=== PATIENT | male | born 1970 | race Two or more races ===

== ENCOUNTER 2019-09-29 21:54 | Inpatient (IN) | payer OTHER ==
[2019-09-29 22:42] VITALS: BMI 20.9
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
[2019-09-30] MEDS ORDERED: BISMUTH SUBSALICYLATE 524 MG/30 ML UD PO PRN (00:50)
[2019-09-30] MEDS ORDERED: BACLOFEN 10 MG TABLET (FP) PO PRN (00:50)
[2019-09-30] MEDS ORDERED: METHOCARBAMOL 500 MG TABLET PO PRN (00:50)
[2019-09-30] MEDS ORDERED: ACETAMINOPHEN 325 MG TABLET (FP) PO PRN ×2 (00:50)
[2019-09-30] MEDS ORDERED: P-EPHED 60MG/TRIPROLIDI 2.5MG TABLET PO PRN (00:50)
[2019-09-30] MEDS ORDERED: guaiFENesin 200 MG/10 ML 10 ML UNIT-DOSE CUPS PO PRN (00:50)
[2019-09-30] MEDS ORDERED: DICYCLOMINE HCL 10 MG CAPSULE PO PRN (00:50)
[2019-09-30] MEDS ORDERED: MAG HYDROX/AL HYDROX/SIMETH 30 ML UNIT-DOSE CUP PO PRN (00:50)
[2019-09-30] MEDS ORDERED: LORazepam 1 MG TABLET PO PRN (00:50)
[2019-09-30] MEDS ORDERED: IBUPROFEN 400 MG TABLET (FP) PO PRN (00:50)
[2019-09-30] MEDS ORDERED: ONDANSETRON *ODT* 4 MG TABLET SL PRN (00:50)
[2019-09-30] MEDS ORDERED: hydrOXYzine PAMOATE 25 MG CAPSULE (FP) PO PRN (00:50)
[2019-09-30] MEDS ORDERED: MAGNESIUM HYDROX 2400MG/30ML ORAL SUSPENSION 30 ML CUP PO PRN (00:50)
[2019-09-30] MEDS ORDERED: MAGNESIUM CITRATE 300 ML BOTTLE PO PRN (00:50)
[2019-09-30] MEDS ORDERED: MENTHOL/PHENOL 1 EACH UD MM PRN (00:50)
[2019-09-30] MEDS: LORazepam 2 MG TABLET PO SCH ×4 (06:04→22:10)
[2019-09-30] MEDS: PRENATAL VITAMINS W/ FOLIC ACID TABLET (FP) PO SCH (10:51)
[2019-09-30] MEDS: ASPIRIN COATED 81 MG TABLET.EC PO SCH (10:52)
[2019-09-30] MEDS: NIFEdipine E.R. 30 MG TABLET (FP) PO SCH (10:52)
[2019-09-30 11:06] LABS: ALBUMIN 3.7 g/dl (3.4-5.0); BILIRUBIN,TOTAL 0.4 mg/dL (0.2-1); BLOOD UREA NITROGEN 17.5 mg/dL (7-18); CALCIUM 9.4 mg/dL (8.5-10.1); CREATININE 0.8 mg/dL (0.55-1.3); POTASSIUM 4.3 mmol/L (3.5-5.1); TOT PROT 7.1 g/dl (6.4-8.2)
[2019-09-30 11:20] LABS: HEMATOCRIT 37.4 % (35.4-49); HEMOGLOBIN 12.7 GM/dL (11.7-16.9); MCH 33.7 pg (25.7-33.7); MCHC 33.9 g/dl (32.0-35.9); MEAN CELL VOLUME 99.4 fl (80-96); MEAN PLT VOLUME 8.7 fl (7.5-11.1); PLATELET COUNT 269 K/MM3 (134-434); RBC 3.76 M/mm3 (4.00-5.60); WHITE BLOOD COUNT 5.3 K/mm3 (4.0-10.0)
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
[2019-09-30] MEDS: THIAMINE HCL 100 MG TABLET (FP) PO SCH (22:10)
[2019-10-01] MEDS: LORazepam 1 MG TABLET PO SCH ×3 (05:29→17:11)
[2019-10-01] MEDS: NIFEdipine E.R. 30 MG TABLET (FP) PO SCH (10:17)
[2019-10-01] MEDS: PRENATAL VITAMINS W/ FOLIC ACID TABLET (FP) PO SCH (10:17)
[2019-10-01] MEDS: ASPIRIN COATED 81 MG TABLET.EC PO SCH (10:17)
--- NOTE | 2019-10-01 11:15 | PN ---
[facility] CIWA - CIWA Score Nausea/Vomitin-Mild Nausea/No Vomiting Muscle Tremors: 4-Moderate,w/Arms Extend Anxiety: 4-Mod. Anxious/Guarded Agitation: 3 Paroxysmal Sweats: 2 Orientation: 0-Oriented Tacttile Disturbances: 1-Very Mild Itch/Numbness Auditory Disturbances: 0-None Visual Disturbances: 0-None Headache: 0-None Present CIWA-Ar Total Score: 15 S Progress Note (SOAP) Subjective: 48 YEARS OLD MALE ADMITTED ON 09/30/19 FOR ALCOHOL WITHDRAWAL SX MANAGEMENT TREATED WITH ATIVAN DETOX REGIMEN [facility] AMB[facility]ATING ON [address] [facility] RECOMMEND THE PATIENT TO ATTEND MEETINGS AND GROUPS WHILE IN DETOX Objective: 10/01/19 11:16 Vital Signs Temperature 97.2 F L 10/01/19 10:02 Pulse Rate 66 10/01/19 10:02 Respiratory Rate 16 10/01/19 10:02 Blood Pressure 122/77 10/01/19 10:02 O2 Sat by Pulse Oximetry (%) Laboratory Last Values WBC 5.3 K/mm3 (4.0-10.0) 09/30/19 07:40 RBC 3.76 M/mm3 (4.00-5.60) L 09/30/19 07:40 Hgb 12.7 GM/dL (11.7-16.9) 09/30/19 07:40 Hct 37.4 % (35.4-49) 09/30/19 07:40 MCV 99.4 fl (80-96) H 09/30/19 07:40 MCH 33.7 pg (25.7-33.7) 09/30/19 07:40 MCHC 33.9 g/dl (32.0-35.9) 09/30/19 07:40 RDW 14.0 % (11.9-15.9) 09/30/19 07:40 Plt Count 269 K/MM3 (134-434) 09/30/19 07:40 MPV 8.7 fl (7.5-11.1) 09/30/19 07:40 Sodium 141 mmol/L (136-145) 09/30/19 07:40 Potassium 4.3 mmol/L (3.5-5.1) 09/30/19 07:40 Chloride 105 mmol/L (98-107) 09/30/19 07:40 Carbon Dioxide 33 mmol/L (21-32) H 09/30/19 07:40 Anion Gap 4 MMOL/L (8-16) L 09/30/19 07:40 BUN 17.5 mg/dL (7-18) 09/30/19 07:40 Creatinine 0.8 mg/dL (0.55-1.3) 09/30/19 07:40 Est GFR (CKD-EPI)AfAm 120.72 09/30/19 07:40 Est GFR (CKD-EPI)NonAf 104.16 09/30/19 07:40 POC Glucometer 180 UNITS (80-120) 10/01/19 05:31 Random Glucose 118 mg/dL (74-106) H 09/30/19 07:40 Calcium 9.4 mg/dL (8.5-10.1) 09/30/19 07:40 Total Bilirubin 0.4 mg/dL (0.2-1) 09/30/19 07:40 AST 136 U/L (15-37) H 09/30/19 07:40 ALT 230 U/L (13-61) H 09/30/19 07:40 Alkaline Phosphatase 129 U/L (45-117) H 09/30/19 07:40 Total Protein 7.1 g/dl (6.4-8.2) 09/30/19 07:40 Albumin 3.7 g/dl (3.4-5.0) 09/30/19 07:40 RPR Titer Nonreactive (NONREACTIVE) 09/30/19 07:40 LAB NOTED AST ELEVATION REPEAT AST 10/01/19 11:18 Assessment: 10/01/19 11:20 ALCOHOL WITHDRAWAL SX Plan: CONTINUE ATIVAN DETOX REGIMEN
[2019-10-01] MEDS: MELATONIN 5 MG TABLETS PO PRN (23:09)
[2019-10-02] MEDS ORDERED: LORazepam 0.5 MG TABLET PO PRN
[2019-10-02] MEDS: LORazepam 1 MG TABLET PO SCH (00:13)
[2019-10-02] MEDS: THIAMINE HCL 100 MG TABLET (FP) PO SCH ×2 (00:13→22:12)
[2019-10-02] MEDS: LORazepam 0.5 MG TABLET PO SCH ×4 (05:21→22:12)
[2019-10-02] MEDS: PRENATAL VITAMINS W/ FOLIC ACID TABLET (FP) PO SCH (10:24)
[2019-10-02] MEDS: NIFEdipine E.R. 30 MG TABLET (FP) PO SCH (10:24)
[2019-10-02] MEDS: ASPIRIN COATED 81 MG TABLET.EC PO SCH (10:24)
[2019-10-02] MEDS: MELATONIN 5 MG TABLETS PO PRN (22:13)
[2019-10-03] MEDS ORDERED: LORazepam 0.5 MG TABLET PO ONE (05:00)
[2019-10-03 09:33] VITALS: BP 116/81; PULSE 75; TEMP 97.6
--- NOTE | 2019-10-03 13:11 | DS ---
[facility] Detox Discharge Summary Admission Date: 09/30/19 Discharge Date: 10/03/19 - History Present History: Alcohol Dependence Additional Comments: 48 years old male admitted on 09/30/19 for alcohol withdrawal sx management treated with ativan detox regimen patient is alert oriented x 3 respiratory clear lung bilaterally on auscultation extremities full range of motion abdomen soft no rebound tenderness - Physical Exam Results Vital Signs: Vital Signs Temperature 97.6 F 10/03/19 09:30 Pulse Rate 75 10/03/19 09:30 Respiratory Rate 18 10/03/19 09:30 Blood Pressure 116/81 10/03/19 09:30 O2 Sat by Pulse Oximetry (%) Pertinent Admission Physical Exam Findings: alcohol withdrawal sx Laboratory Last Values WBC 5.3 K/mm3 (4.0-10.0) 09/30/19 07:40 RBC 3.76 M/mm3 (4.00-5.60) L 09/30/19 07:40 Hgb 12.7 GM/dL (11.7-16.9) 09/30/19 07:40 Hct 37.4 % (35.4-49) 09/30/19 07:40 MCV 99.4 fl (80-96) H 09/30/19 07:40 MCH 33.7 pg (25.7-33.7) 09/30/19 07:40 MCHC 33.9 g/dl (32.0-35.9) 09/30/19 07:40 RDW 14.0 % (11.9-15.9) 09/30/19 07:40 Plt Count 269 K/MM3 (134-434) 09/30/19 07:40 MPV 8.7 fl (7.5-11.1) 09/30/19 07:40 Sodium 141 mmol/L (136-145) 09/30/19 07:40 Potassium 4.3 mmol/L (3.5-5.1) 09/30/19 07:40 Chloride 105 mmol/L (98-107) 09/30/19 07:40 Carbon Dioxide 33 mmol/L (21-32) H 09/30/19 07:40 Anion Gap 4 MMOL/L (8-16) L 09/30/19 07:40 BUN 17.5 mg/dL (7-18) 09/30/19 07:40 Creatinine 0.8 mg/dL (0.55-1.3) 09/30/19 07:40 Est GFR (CKD-EPI)AfAm 120.72 09/30/19 07:40 Est GFR (CKD-EPI)NonAf 104.16 09/30/19 07:40 POC Glucometer 117 UNITS (80-120) 10/03/19 05:21 Random Glucose 118 mg/dL (74-106) H 09/30/19 07:40 Calcium 9.4 mg/dL (8.5-10.1) 09/30/19 07:40 Total Bilirubin 0.4 mg/dL (0.2-1) 09/30/19 07:40 AST 48 U/L (15-37) H 10/02/19 09:15 ALT 230 U/L (13-61) H 09/30/19 07:40 Alkaline Phosphatase 129 U/L (45-117) H 09/30/19 07:40 Total Protein 7.1 g/dl (6.4-8.2) 09/30/19 07:40 Albumin 3.7 g/dl (3.4-5.0) 09/30/19 07:40 RPR Titer Nonreactive (NONREACTIVE) 09/30/19 07:40 lab noted - Treatment Hospital Course: Detox Protocol Followed, Detoxed Safely, Responded well, Discharged Condition Good, Rehab Referral Accepted Patient has Accepted a Rehab Referral to: [facility] - Medication Discharge Medications: Ambulatory Orders Aspirin Coated [Ecotrin -] 81 mg PO DAILY 09/29/19 Folic Acid 1 mg PO DAILY 09/29/19 Nifedipine ER [Procardia XL -] 30 mg PO DAILY 09/29/19 Thiamine HCl [B-1] 100 mg PO DAILY 09/29/19 - Diagnosis (1) Alcohol dependence with withdrawal, uncomplicated Status: Acute (2) Positive PPD Status: Resolved (3) Diabetes Status: Chronic Qualifiers: Diabetes mellitus type: type 2 Diabetes mellitus prison insulin use: without moth exterminator use Diabetes mellitus complication status: without complication Qualified Code(s): E11.9 - Type 2 diabetes mellitus without complications (4) HTN (hypertension) Status: Chronic Qualifiers: Hypertension type: essential hypertension Qualified Code(s): I10 - Essential (primary) hypertension (5) Substance induced mood disorder Status: Suspected - AMA Did Patient Leave Against Medical Advice: No CIWA Score - CIWA Score Nausea/Vomitin-No Nausea/No Vomiting Muscle Tremors: 2 Anxiety: 2 Agitation: 2 Paroxysmal Sweats: 1-Minimal Palms Moist Orientation: 0-Oriented Tacttile Disturbances: 0-None Auditory Disturbances: 0-None Visual Disturbances: 0-None Headache: 0-None Present CIWA-Ar Total Score: 7
[2019-10-03 19:16] LABS: PH,URINE 5.5 (5.0-8.0); URINE APPEARANCE CLEAR; URINE BILIRUBIN NEGATIVE (NEGATIVE); URINE COLOR YELLOW; URINE GLUCOSE (UA) NEGATIVE (NEGATIVE); URINE KETONE NEGATIVE (NEGATIVE); URINE LEUK ESTERASE NEGATIVE (NEGATIVE); URINE NITRITE NEGATIVE (NEGATIVE); URINE PROTEIN NEGATIVE (NEGATIVE); URINE UROBILINOGEN 0.2 mg/dL (0.2-1.0)
== END 2019-10-03 09:37 | disposition home or self-care (01) | DRG 897 ==
LOC: YASAS 21:54 → Y3N 09-30 00:40
PROVIDERS: ADMIT Allergy & Immunology; ATTEND Allergy & Immunology
PROC: HZ2ZZZZ Detoxification Services for Substance Abuse Treatment (ICD-10-PCS; principal; 2019-09-30)
DX: F10.230 Alcohol dependence with withdrawal, uncomplicated (principal); F19.24 Other psychoactive substance dependence with psychoactive substance-induced mood disorder; I11.0 Hypertensive heart disease with heart failure; E11.9 Type 2 diabetes mellitus without complications; Z79.84 Long term (current) use of oral hypoglycemic drugs; D64.9 Anemia, unspecified; R23.8 Other skin changes; R76.11 Nonspecific reaction to tuberculin skin test without active tuberculosis; Z87.19 Personal history of other diseases of the digestive system; Z91.89 Other specified personal risk factors, not elsewhere classified
CPT/HCPCS: 36415; 80053; 81003; 82962; 84450; 85027; 86593; J0475

== ENCOUNTER 2025-03-24 16:21 | Inpatient (IN) | payer OTHER ==
[2025-03-24 16:43] VITALS: BMI 22.8
[2025-03-24] MEDS ORDERED: MAGNESIUM HYDROX 2400MG/30ML ORAL SUSPENSION 30 ML CUP PO PRN (18:01)
[2025-03-24] MEDS ORDERED: POLYETHYLENE GLYCOL (HEALTHYLAX) 3350 17 GM PACKET PO PRN (18:01)
[2025-03-24] MEDS ORDERED: NALOXONE (NARCAN) HCL 4 MG/0.1 ML SPRAY NS PRN (18:01)
[2025-03-24] MEDS ORDERED: chlordiazePOXIDE HCL 25 MG CAPSULE PO PRN (18:01)
[2025-03-24] MEDS ORDERED: BISMUTH SUBSALICYLATE 524 MG/30 ML PO PRN (18:01)
[2025-03-24] MEDS ORDERED: IBUPROFEN 400 MG TABLET (FP) PO PRN (18:01)
[2025-03-24] MEDS ORDERED: IBUPROFEN 600 MG TABLET (FP) PO PRN (18:01)
[2025-03-24] MEDS ORDERED: guaiFENesin 600 MG TABLET.ER (FP) PO PRN (18:01)
[2025-03-24] MEDS ORDERED: BENZONATATE 200 MG CAPSULE PO PRN (18:01)
[2025-03-24] MEDS ORDERED: DICYCLOMINE HCL 10 MG CAPSULE PO PRN (18:01)
[2025-03-24] MEDS ORDERED: LOPERAMIDE HCL 2 MG CAPSULE PO PRN (18:01)
[2025-03-24] MEDS ORDERED: MAG HYDROX/AL HYDROX/SIMETH 30 ML UNIT-DOSE CUP PO PRN (18:01)
[2025-03-24] MEDS ORDERED: ACETAMINOPHEN 325 MG TABLET (FP) PO PRN (18:01)
[2025-03-24] MEDS ORDERED: ONDANSETRON *ODT* 4 MG TABLET SL PRN (18:01)
[2025-03-24] MEDS: BENZOCAINE/MENTHOL (CHLORASEPTIC ) LOZENGE MM PRN (21:00)
[2025-03-24] MEDS: MELATONIN 5 MG TABLETS PO SCH (22:36)
[2025-03-24] MEDS: THIAMINE 100 MG TABLET PO SCH (22:36)
[2025-03-24] MEDS ORDERED: chlordiazePOXIDE HCL 25 MG CAPSULE PO SCH (23:00)
[2025-03-25 08:33] LABS: HEMATOCRIT 40.2 % (40.1-51.0); HEMOGLOBIN 13.9 g/dL (13.7-17.5); MCHC 34.6 g/dl (32.3-36.5); MEAN CELL VOLUME 87.6 fl (79.0-92.2); MEAN PLT VOLUME 10.5 fl (9.4-12.4); PLATELET COUNT 185 x10^3/uL (163-337); RDW 12.7 % (12.2-16.1)
[2025-03-25 08:38] LABS: CHLORIDE 101 mmol/L (98-107); POTASSIUM 3.5 mmol/L (3.5-5.1); SODIUM 137 mmol/L (136-145)
[2025-03-25 08:50] LABS: CALCIUM 9.4 mg/dL (8.5-10.1)
[2025-03-25 08:51] LABS: ALBUMIN 3.8 g/dl (3.4-5.0); ANION GAP 7 mmol/L (4-13); CO2 28 mmol/L (21-32); GLUCOSE,RANDOM 99 mg/dL (74-106)
[2025-03-25 08:53] LABS: SGPT/ALT 33 U/L (13-61)
[2025-03-25 08:54] LABS: CREATININE 0.8 mg/dL (0.55-1.3); SGOT/AST 28 U/L (15-37)
[2025-03-25 08:55] LABS: BILIRUBIN,TOTAL 0.9 mg/dL (0.2-1); TOT PROT 6.9 g/dl (6.4-8.2)
[2025-03-25 08:56] LABS: ALK PHOS 57 U/L (45-117)
[2025-03-25] MEDS ORDERED: chlordiazePOXIDE HCL 25 MG CAPSULE PO PRN (09:52)
[2025-03-25] MEDS: PRENATAL VITAMINS W/ FOLIC ACID TABLET (FP) PO SCH (10:07)
[2025-03-25] MEDS: chlordiazePOXIDE HCL 25 MG CAPSULE PO SCH (11:17)
[2025-03-25] MEDS: NIFEdipine E.R. 30 MG TABLET PO SCH (14:42)
[2025-03-25] MEDS: MELATONIN 5 MG TABLETS PO SCH (22:14)
[2025-03-25] MEDS: METHOCARBAMOL 500 MG TABLET PO PRN (22:15)
[2025-03-26] MEDS ORDERED: chlordiazePOXIDE HCL 25 MG CAPSULE PO SCH (05:00)
[2025-03-27] MEDS ORDERED: chlordiazePOXIDE HCL 10 MG CAPSULE PO PRN
[2025-03-27] MEDS ORDERED: chlordiazePOXIDE HCL 10 MG CAPSULE PO SCH (05:00)
[2025-03-27] MEDS: chlordiazePOXIDE HCL 25 MG CAPSULE PO SCH (05:11)
[2025-03-28] MEDS ORDERED: chlordiazePOXIDE HCL 10 MG CAPSULE PO PRN
[2025-03-28] MEDS ORDERED: chlordiazePOXIDE HCL 10 MG CAPSULE PO SCH (05:00)
[2025-03-28] MEDS: chlordiazePOXIDE HCL 10 MG CAPSULE PO SCH (05:49)
[2025-03-29] MEDS ORDERED: chlordiazePOXIDE HCL 10 MG CAPSULE PO ONE (05:00)
[2025-03-29] MEDS: chlordiazePOXIDE HCL 10 MG CAPSULE PO SCH (05:46)
[2025-03-29 17:44] VITALS: RESP 16
[2025-03-29] MEDS: hydrOXYzine PAMOATE 25 MG CAPSULE (FP) PO PRN (22:12)
[2025-03-30] MEDS: chlordiazePOXIDE HCL 10 MG CAPSULE PO ONE (05:50)
[2025-03-30 09:56] VITALS: BP 120/74; PULSE 61; TEMP 97.6
== END 2025-03-30 10:29 | disposition home or self-care (01) | DRG 897 ==
LOC: YASAS 16:21 → Y6N 19:12
PROVIDERS: ADMIT Allergy & Immunology; ATTEND Family Medicine Addiction Medicine
PROC: HZ2ZZZZ Detoxification Services for Substance Abuse Treatment (ICD-10-PCS; principal; 2025-03-24)
DX: F10.230 Alcohol dependence with withdrawal, uncomplicated (principal); F12.20 Cannabis dependence, uncomplicated; F17.210 Nicotine dependence, cigarettes, uncomplicated; F41.1 Generalized anxiety disorder; F32.9 Major depressive disorder, single episode, unspecified; G47.00 Insomnia, unspecified
CPT/HCPCS: 36415; 71046-TC-FY; 80053; 80305; 80307; 85027; 86780; 93005; 93010